=== PATIENT | male | born 1965 | race Caucasian/White ===

== ENCOUNTER 2017-12-22 08:36 | Emergency (ER) | payer OTHER ==
[~2017-12-22] VITALS: Ht 172.7 cm; Wt 81.6 kg
[~2017-12-22 08:36] MED LIST: AUGMENTIN 875-1 EACH PO
[2017-12-22 08:41] VITALS: BP 121/93
--- NOTE | 2017-12-22 09:04 | ED NECK/BACK PAIN COMPLAINT ---
History of Present Illness General Chief Complaint: Low Back Pain/Injury Stated Complaint: LOWER BACK PAIN THAT RADIATES DOWN RIGHT LEG Source: patient, family Exam Limitations: no limitations Vital Signs & Intake/Output Vital Signs & Intake/Output Vital Signs Date Time Temp Pulse Resp B/P B/P Pulse O2 O2 Flow FiO2 Mean Ox Delivery Rate 12/22 1125 98 12/22 0841 97.3 89 20 121/93 99 Room Air Allergies Coded Allergies: No Known Allergies (04/15/17) Reconcile Medications Dextroamphetamine Sulfate (Dexedrine) 10 MG CAPSULE.ER 1 CAP PO QAM MENTAL HEALTH (Reported) Meloxicam (Mobic) 15 MG TABLET 1 TAB PO DAILY PRN PAIN Triage Note: PT TO ED C/O RIGHT LOWER BACK PAIN RADIATING TO GROIN, HIP AND BEHIND RIGHT KNEE X 6 MONTHS. STATES WORSE YESTERDAY, DENIES OBVIOUS INJURY. HAS TAKEN MOTRIN WITH NO RELIEF, STATES HEAT HELPS. UNABLE TO SIT IN TRIAGE. TAKEN TO ROOM 11 FOR FURTHER EVAL. Triage Nurses Notes Reviewed? yes Onset: Gradual Duration: week(s): Timing: recent history Quality/Severity: moderate Location: right hip Radiation: right groin and knee Method of Injury: unknown HPI: 52yo male with history of lymphoma presents to ED complaining of groin pain x 8 months. Patient states that stretches have been relieving his pain for the past several months however as of yesterday his pain has been worse. Patient reports right sided hip pain radiating to groin worsening yesterday and paresthesias down right leg. Patient has been applying heat which helps slightly however no other relieving factors. There was no trauma or injury prior to onset of his pain. Patient is being treated with a trial medication for his lymphoma, his lymphoma specialist knows about his pain, informed him that he would likely need to see an orthopedic doctor however patient has not followed up with specialist yet. Patient has had scans about every 3 months, most recent PET scan showed "hot nodes" in inguinal area however no other known abnormality. Patient denies urinary difficulty, bowel incontinence, testicular pain, abdominal pain, fevers, chills. (Tsering ROBLES,Samantha Graves) Past History Travel History Traveled to [place] past 21 day No Medical History Any Pertinent Medical History? see below for history Neurological: NARCALEPSY Cancer(s): NON HODGKINS LYMPHOMA Surgical History Surgical History: none Psychosocial History What is your primary language Thai Tobacco Use: Never used ETOH Use: occasional use Illicit Drug Use: denies illicit drug use Family History Hx Contributory? No (Samantha Jackson) Review of Systems Review of Systems Constitutional: Reports: no symptoms. Eyes: Reports: no symptoms. Ears, Nose, Throat, Mouth: Reports: no symptoms. Respiratory: Reports: no symptoms. Cardiovascular: Reports: no symptoms. Gastrointestinal/Abdominal: Reports: no symptoms. Musculoskeletal: Reports: see HPI. Skin: Reports: no symptoms. Neurological/Psychological: Reports: see HPI. All Other Systems: Reviewed and Negative (Samantha Jackson) Physical Exam Physical Exam General Appearance: well developed/nourished, no apparent distress, alert, awake Head: atraumatic, normal appearance Eyes: Bilateral: normal appearance. Ears, Nose, Throat, Mouth: hearing grossly normal Neck: normal inspection, supple, full range of motion Respiratory: no respiratory distress Cardiovascular: normal peripheral pulses Peripheral Pulses: 2+ dorsalis pedis (R) Gastrointestinal: soft, non-tender Back: normal inspection, normal range of motion, nontender Extremities: nontender, FROM, no swelling or skin changes Straight Leg Raising: Right: Negative. Left: Negative. Sensory: Medial Le: L4R, L4L. Top of Foot: 2: L5R, L5L. Sole of Foot: 2: SIR, TIMBO. Neurologic/Psych: no motor/sensory deficits, awake, alert, oriented x 3, strength 5/5 equal bilateral lower extremities Skin: intact, normal color, warm/dry Core Measures CVA/TIA Diagnosis: No (Samantha Jackson) Progress Differential Diagnosis: cauda equina syn, herniated disc, myofascial strain, sciatica, spinal cord inj, T/L spine injury, hERNIA, RADICULAR PAIN, NERVE COMPRESSION, MASS/MALIGNANCY/LESION Plan of Care: Orders Procedure Date/time Status CT ABD & PELVIS W/O IV CONTRAS 12/22 09 Active Patient's abdominal CAT scan shows mesentery mass associated with lymphatic tissue, patient is aware of this finding already. There is no other abnormality detected on CT scan, no bony lesion detected. Patient's distal pulses are intact, good skin color, normal sensation. He has no incontinence, and no distress, no suspicion for cauda equina syndrome. Patient does report good relief of pain following IM Toradol. Patient to follow-up with his cancer specialist. He was given strict return precautions. The patient agrees with the plan of care. The patient was discussed with Dr. Llamas who agrees with this plan. Diagnostic Imaging: Viewed by Me: CT Scan. Discussed w/RAD: CT Scan. Radiology Impression: PATIENT: LEOLA CHEW PRESENT AGE: 52 PATIENT ACCOUNT NO: [id number] : 66 LOCATION: [facility] ORDERING PHYSICIAN: Samantha ROBLES SERVICE DATE: 12/22/17 EXAM TYPE: CAT - CT ABD & PELVIS W/O IV CONTRAS EXAMINATION: CT ABDOMEN AND PELVIS WITHOUT CONTRAST CLINICAL INFORMATION: 52-year-old male patient with hip pain radiating to the groin. History of lymphoma. Presumptive diagnosis: Lumbar compression, lesion/mass, hernia. COMPARISON: None TECHNIQUE: Multidetector volumetric imaging was performed from the superior aspect of the liver through the pubic symphysis. Sagittal and coronal reformatted images were obtained on the technologist's workstation. Additional reformats were obtained targeted to the LS-spine. DLP: 347 mGy-cm FINDINGS: Layout Inspector: There is lumbarization of S1. Otherwise unremarkable. LUNG BASES: The visualized lung bases are unremarkable. LIVER, GALLBLADDER, AND BILIARY TREE: Normal. PANCREAS: Unremarkable. SPLEEN: Unremarkable. ADRENAL GLANDS: Unremarkable. KIDNEYS AND URETERS: The kidneys are normal in size, shape, and attenuation. No hydronephrosis, hydroureter, or calculi seen. No perinephric stranding. BLADDER: Unremarkable. GASTROINTESTINAL TRACT: The small and large bowel are unremarkable. The retrocecal appendix is unremarkable. ABDOMINAL WALL: A very small periumbilical fat-containing hernia seen just superior to the umbilicus. Series 601, image 66/131. LYMPH NODES: All andrés bearing areas are normal. However, there is an approximately 3 cm irregular soft tissue mass located in the small bowel mesentery which is most likely lymphomatous in origin. Series 602, image 37/99. VASCULAR: Unremarkable. PELVIC VISCERA: Unremarkable. OSSEOUS STRUCTURES: Unremarkable. IMPRESSION: Small mesenteric mass thought to be lymphomatous in origin. DICTATED BY: Jim Aquino MD DATE/TIME DICTATED:12/22/171002 ENVIRONMENTAL EPIDEMIOLOGIST:EDMUNDO DATE /TIME TRANSCRIBED:12/22/171002 CONFIDENTIAL, DO NOT COPY WITHOUT APPROPRIATE AUTHORIZATION. <Electronically signed in Other Vendor System> SIGNED BY: Jim Aquino MD 12/22/17 1027 (Samantha Jackson) Departure Departure Disposition: HOME OR SELF CARE Condition: Stable Clinical Impression Primary Impression: Paresthesias Secondary Impressions: Groin pain Qualifiers: Laterality: right Qualified Code: R10.31 - Right lower quadrant pain Hip pain Qualifiers: Laterality: right Qualified Code: M25.551 - Pain in right hip Referrals: Patient Has No Primary Care Dr (PCP/Family) Additional Instructions: Follow-up with [facility]gemaster specialist. Take meloxicam as prescribed as needed for pain. Return with worsening symptoms or concerns. Please note that there might be incidental findings in your evaluation that are unrelated to the current emergency department visit. Please notify your primary care doctor about this emergency department visit in order to obtain and review all of the testing performed so that these incidental findings can be monitored as needed. If you had an x-ray performed, please understand that some fractures may not be seen on the initial set of x-rays. If your symptoms persist you might need a repeat set of x-rays to check for such a fracture. If you had a laceration evaluated, please understand that foreign bodies such as glass or wood may not be visible to the naked eye or on plain x-rays. If the wound becomes red, swollen, increasingly more painful or if there is any drainage from the wound, please have it reevaluated by a physician for the possibility of a retained foreign body. If you're unable to follow up as outlined in the discharge instructions please return to the emergency department. Thank you for choosing the [facility] Emergency Department for your care. It was a pleasure to serve you today. Departure Forms: Customer Survey General Discharge Information Prescriptions: Current Visit Scripts Meloxicam (Mobic) 1 TAB PO DAILY PRN PAIN #15 TAB (Samantha Jackson) PA/NURSE NAVIGATOR Co-Sign Statement Statement: ED Attending supervision documentation- I saw and evaluated the patient. I have also reviewed all the pertinent lab results and diagnostic results. I agree with the findings and the plan of care as documented in the PA's/NURSE NAVIGATOR's documentation. x I have reviewed the ED Record and agree with the PA's/NURSE NAVIGATOR's documentation. [] Additions or exceptions (if any) to the PAs/NURSE NAVIGATOR's note and plan are summarized below: [] (Muriel ROJAS,Jewel)
[2017-12-22] MEDS ORDERED: DEXEDRINE10 M1 PO (09:27)
--- NOTE | 2017-12-22 10:27 | CT SCAN REPORT ---
EXAMINATION: CT ABDOMEN AND PELVIS WITHOUT CONTRAST CLINICAL INFORMATION: 52-year-old male patient with hip pain radiating to the groin. History of lymphoma. Presumptive diagnosis: Lumbar compression, lesion/mass, hernia. COMPARISON: None TECHNIQUE: Multidetector volumetric imaging was performed from the superior aspect of the liver through the pubic symphysis. Sagittal and coronal reformatted images were obtained on the technologist's workstation. Additional reformats were obtained targeted to the LS-spine. DLP: 347 mGy-cm FINDINGS: Writer Technical Publications: There is lumbarization of S1. Otherwise unremarkable. LUNG BASES: The visualized lung bases are unremarkable. LIVER, GALLBLADDER, AND BILIARY TREE: Normal. PANCREAS: Unremarkable. SPLEEN: Unremarkable. ADRENAL GLANDS: Unremarkable. KIDNEYS AND URETERS: The kidneys are normal in size, shape, and attenuation. No hydronephrosis, hydroureter, or calculi seen. No perinephric stranding. BLADDER: Unremarkable. GASTROINTESTINAL TRACT: The small and large bowel are unremarkable. The retrocecal appendix is unremarkable. ABDOMINAL WALL: A very small periumbilical fat-containing hernia seen just superior to the umbilicus. Series 601, image 66/131. LYMPH NODES: All andrés bearing areas are normal. However, there is an approximately 3 cm irregular soft tissue mass located in the small bowel mesentery which is most likely lymphomatous in origin. Series 602, image 37/99. VASCULAR: Unremarkable. PELVIC VISCERA: Unremarkable. OSSEOUS STRUCTURES: Unremarkable. IMPRESSION: Small mesenteric mass thought to be lymphomatous in origin.
[2017-12-22] MEDS ORDERED: MOBIC15 M1 PO (10:45)
== END 2017-12-22 11:20 ==
LOC: ERH 08:36
DX: R20.2 Paresthesia of skin (principal); M25.551 Pain in right hip; R10.31 Right lower quadrant pain
CPT/HCPCS: 74176; 96372; J1885